=== PATIENT | female | born 1955 | race Caucasian/White ===

== ENCOUNTER → 2016-12-07 | Outpatient (CLI) | payer BC ==
[~2016-12-07] MED LIST: ANT25 PO; ASPI325T45 PO; ATV/1 PO; FURO20TA PO; GLC/500 PO; LISI-461 PO; OMEG10007 PO; PRLSR20 PO
[2016-12-07 13:36] LABS: ESTIMATED AVERAGE GLUCOSE 252 mg/dl; HA1C FLAG Normal (Normal)
[2016-12-07 13:37] LABS: BLOOD UREA NITROGEN 15 mg/dl (7-18); BUN/CREATININE RATIO 18.4 (10-20); CALCIUM 8.3 mg/dl (8.5-10.1); CARBON DIOXIDE 25 mmol/L (21-32); CHLORIDE 104 mmol/L (98-107); CHOLESTEROL 166 mg/dl (0-200); CREATININE 0.83 mg/dl (0.60-1.20); GLUCOSE 241 mg/dl (70-99); POTASSIUM 4.6 mmol/L (3.5-5.1); SODIUM 139 mmol/L (136-145); TRIGLYCERIDES 227 mg/dl (0-150); VERY LOW DENSITY LIPOPROT CALC 45 mg/dl
[2016-12-07 13:38] LABS: CHOLESTEROL/HDL RATIO 6.1; HDL CHOLESTEROL 27 mg/dl; LDL CHOLESTEROL CALCULATED 94 mg/dl
== END ==
LOC: C.LABPVFM 09:02
PROVIDERS: ATTEND Nurse Practitioner
DX: E11.9 Type 2 diabetes mellitus without complications (principal); D47.3 Essential (hemorrhagic) thrombocythemia; I10 Essential (primary) hypertension; E55.9 Vitamin D deficiency, unspecified

== ENCOUNTER → 2017-03-19 | Outpatient (CLI) | payer BC ==
[2017-03-19 13:27] LABS: CALCIUM 8.6 mg/dl (8.5-10.1)
[2017-03-19 13:30] LABS: BLOOD UREA NITROGEN 11 mg/dl (7-18); BUN/CREATININE RATIO 10.7 (10-20); CARBON DIOXIDE 27 mmol/L (21-32); CHLORIDE 104 mmol/L (98-107); GLUCOSE 226 mg/dl (70-99); POTASSIUM 4.8 mmol/L (3.5-5.1); SODIUM 137 mmol/L (136-145)
== END | disposition home or self-care (01) ==
LOC: C.LABPVFM 09:03
PROVIDERS: ATTEND Nurse Practitioner
DX: E11.9 Type 2 diabetes mellitus without complications (principal)

== ENCOUNTER → 2017-05-14 | Outpatient (CLI) | payer BC | END | disposition home or self-care (01) | LOC: C.LABPVFM 07:51 | PROVIDERS: ATTEND Neuromusculoskeletal Medicine & OMM | DX: R60.0 Localized edema (principal) ==

== ENCOUNTER → 2017-06-21 | Outpatient (CLI) | payer BC ==
[2017-06-21 13:43] LABS: BLOOD UREA NITROGEN 12 mg/dl (7-18); BUN/CREATININE RATIO 15.8 (10-20); CALCIUM 8.3 mg/dl (8.5-10.1); CARBON DIOXIDE 28 mmol/L (21-32); CHLORIDE 104 mmol/L (98-107); CREATININE 0.78 mg/dl (0.60-1.20); GLUCOSE 205 mg/dl (70-99); POTASSIUM 4.4 mmol/L (3.5-5.1); SODIUM 137 mmol/L (136-145)
[2017-06-21 13:48] LABS: CHOLESTEROL 156 mg/dl (0-200); CHOLESTEROL/HDL RATIO 6.2; HDL CHOLESTEROL 25 mg/dl; LDL CHOLESTEROL CALCULATED 99 mg/dl; TRIGLYCERIDES 159 mg/dl (0-150); VERY LOW DENSITY LIPOPROT CALC 32 mg/dl
[2017-06-21 13:53] LABS: ESTIMATED AVERAGE GLUCOSE 237 mg/dl; HA1C FLAG Normal (Normal)
== END | disposition home or self-care (01) ==
LOC: C.LABPVFM 08:46
PROVIDERS: ATTEND Nurse Practitioner
DX: E11.9 Type 2 diabetes mellitus without complications (principal); I10 Essential (primary) hypertension; R60.0 Localized edema; Z13.220 Encounter for screening for lipoid disorders

== ENCOUNTER → 2017-07-07 | Outpatient (CLI) | payer BC ==
--- NOTE | 2017-07-08 07:41 | MAMMOGRAPHY REPORT ---
BILATERAL DIGITAL SCREENING MAMMOGRAM TOMOSYNTHESIS WITH CAD: 07/07/2017 CLINICAL HISTORY: Routine screening. TECHNIQUE: Breast tomosynthesis in addition to standard 2D mammography was performed. Current study was also evaluated with a Computer Aided Detection (CAD) system. COMPARISON: Comparison is made to exams dated: 07/04/2016 mammogram, 06/27/2015 mammogram, 06/30/2013 m ammogram, 06/25/2012 mammogram, 06/24/2011 mammogram, and 06/21/2010 mammogram - [facility] enter. BREAST COMPOSITION: There are scattered areas of fibroglandular density in both breasts. FINDINGS: There are benign scattered calcifications in both breasts. No suspicious mass, architectu ral distortion or cluster of suspicious microcalcifications is seen. IMPRESSION: ACR BI-RADS CATEGORY 2: BENIGN There is no mammographic evidence of malignancy. A 1 year screening mammogram is recommended. The pa tient will receive written notification of the results. Approximately 10% of breast cancers are not detected with mammography. A negative mammographic report should not delay biopsy if a clinically suggestive mass is present. Danielle London M.D. ay/:07/07/2017 16:04:11 [employer] Foreman: Marlee CULP(R)(M), [facility] letter sent: Normal 1/2 BI-RADS Code: ACR BI-RADS Category 2: Benign
== END | disposition home or self-care (01) ==
LOC: C.MAMM 15:22
PROVIDERS: ATTEND Nurse Practitioner
DX: Z12.31 Encounter for screening mammogram for malignant neoplasm of breast (principal)

== ENCOUNTER 2017-10-16 15:19 | Emergency (ER) | payer OTHER, BC ==
[~2017-10-16] VITALS: Ht 170.2 cm; Wt 120.0 kg
[2017-10-16 15:22] VITALS: TEMP 36.3; Ht 170.2 cm; Wt 120.0 kg
[2017-10-16] MEDS ORDERED: GLIM1TAB2 PO (19:06)
[2017-10-16] MEDS ORDERED: INSDGIPEN SC (19:06)
[2017-10-16] MEDS ORDERED: RIZA10TA18 PO (19:06)
[2017-10-16] MEDS ORDERED: CLON1TAB3 PO (19:06)
[2017-10-16] MEDS ORDERED: SITA50TA3 PO (19:06)
[2017-10-16] MEDS ORDERED: GLUC-221 (19:06)
--- NOTE | 2017-10-16 20:07 | DIAGNOSTIC IMAGING REPORT ---
ULTRASOUND BILATERAL LOWER EXTREMITY VENOUS CLINICAL HISTORY: Fall. Leg pain. COMPARISON STUDY: No priors. TECHNIQUE: Real-time, grayscale, and color Doppler sonography of the deep veins of the right and left lower extremity was performed from the inguinal crease to the calf. Compression and augmentation were utilized. FINDINGS: There is no sonographic evidence of deep venous thrombosis identified in the right or left lower extremity. The common femoral, superficial femoral, and popliteal veins are patent and normally compressible bilaterally. The greater saphenous vein and the profunda femoris vein at the junction with the common femoral vein are clear in both legs. The visualized calf veins are patent bilaterally. IMPRESSION: There is no sonographic evidence of deep venous thrombosis identified in the right or left lower extremity. Electronically signed by: Milton Betts M.D. 10/16/2017 8:06 PM Dictated Date/Time: 10/16/2017 7:59 PM
--- NOTE | 2017-10-16 20:48 | EMERGENCY ROOM VISIT NOTE ---
History Report prepared by Elito: Penny Bartholomew Under the Supervision of: Dr. Irvin Donohue D.O. First contact with patient: 18:37 Chief Complaint: SWELLING TO EXTREMITY Stated Complaint: SENT FROM [place], DVT, FALL ON ICE History of Present Illness The patient is a 62 year old female who presents to the Emergency Room with complaints of worsening swelling to her right lower extremity starting yesterday. The patient states that yesterday she slipped on ice and fell down the stairs at work. She reports that she went to [employer] today who told her she had a broken toe and she should come to the ED to be checked for a blood clot. She notes that she gave her Tramadol and an antibiotic prescription before leaving. The patient complains of pain in her calves and redness on her legs below the abrasions on her legs. The patient notes a history of Diabetes. She notes that she takes Fluorescamine. Source of History: patient Onset: yesterday Position: leg (right) Quality: other (swelling) Timing: worsening Note: The patient complains of pain in her calves and redness on her legs below the abrasions from the fall. Review of Systems See HPI for pertinent positives & negatives. A total of 10 systems reviewed and were otherwise negative. Family History No pertinent family history Social History Smoking Status: Never Smoker Alcohol Use: none Drug Use: none Marital Status: Housing Status: lives with family Occupation Status: employed Current/Historical Medications Scheduled Aspirin (Aspirin), 325 MG PO DAILY Fish Oil ([place]-3), 1 CAP PO DAILY Furosemide (Lasix), 20 MG PO DAILY Glimepiride (Glimepiride), 1 TAB PO DAILY Insulin Glargine (Lantus Solostar), 25 UNITS SC PM Lisinopril (Zestril), 10 MG PO DAILY Lorazepam (Ativan), 0.5-1 MG PO HS Metformin Hcl (Glucophage), 1,000 MG PO QAM Metformin Hcl (Glucophage), 500 MG PO QPM Omeprazole (Prilosec), 20 MG PO DAILY Sitagliptin (Januvia), 50 MG PO DAILY Scheduled PRN Meclizine HCl (Meclizine HCl), 25 MG PO Q8H PRN for Dizziness or Vertigo Miscellaneous Medications Clonazepam (Klonopin), 1 MG PO Glucostix Blood Test Strips (OneMusementuch Ultra Blue) Rizatriptan Benzoate (Maxalt), 10 MG PO Allergies Coded Allergies: Penicillins (Verified Allergy, Intermediate, 10/16/17) Chocolate (Unverified Adverse Reaction, Severe, migraines, 10/16/17) Physical Exam Vital Signs Date Time Temp Pulse Resp B/P (MAP) Pulse Ox O2 Delivery O2 Flow Rate FiO2 10/16/17 21:05 81 16 168/86 97 Room Air 10/16/17 19:06 77 18 154/74 95 Room Air 10/16/17 15:22 36.3 77 16 158/85 95 Room Air Physical Exam CONSTITUTIONAL/VITAL SIGNS: Reviewed / noted above. GENERAL: Non-toxic in appearance. INTEGUMENTARY: Warm, dry, and [place]. HEAD: Normocephalic. EYES: without scleral icterus or trauma. ENT/OROPHARYNX: clear and moist. LYMPHADENOPATHY/NECK: Is supple without lymphadenopathy or meningismus. RESPIRATORY: Lungs clear and equal. CARDIOVASCULAR: Regular rate and rhythm. GI/ABDOMEN: Soft and nontender. No organomegaly or pulsatile mass. No rebound or guarding. Normal bowel sounds. EXTREMITIES: Warm and well perfused. Bilateral lower extremity edema appears chronic. Redness to the bilateral lower anterior legs. Right greater than left. Small healing abrasions noted to the center of the reddened areas. BACK: No CVA tenderness. NEUROLOGICAL: Intact without focal deficits. PSYCHIATRIC: normal affect. MUSCULOSKELETAL: Normally developed with good muscle tone. Medical Decision & Procedures ER Provider Diagnostic Interpretation: Radiology results as stated below per my review and radiologist interpretation: ULTRASOUND BILATERAL LOWER EXTREMITY VENOUS CLINICAL HISTORY: Fall. Leg pain. COMPARISON STUDY: No priors. TECHNIQUE: Real-time, grayscale, and color Doppler sonography of the deep veins of the right and left lower extremity was performed from the inguinal crease to the calf. Compression and augmentation were utilized. FINDINGS: There is no sonographic evidence of deep venous thrombosis identified in the right or left lower extremity. The common femoral, superficial femoral, and popliteal veins are patent and normally compressible bilaterally. The greater saphenous vein and the profunda femoris vein at the junction with the common femoral vein are clear in both legs. The visualized calf veins are patent bilaterally. IMPRESSION: There is no sonographic evidence of deep venous thrombosis identified in the right or left lower extremity. Electronically signed by: Milton Betts M.D. 10/16/2017 8:06 PM Dictated Date/Time: 10/16/2017 7:59 PM Medications Administered Medications (Trade) Dose Ordered Sig/Pamela Route Start Time Stop Time Status Last Admin Dose Admin Doxycycline Hyclate (Vibramycin Cap) 100 mg ONE ONCE PO 10/16/17 21:00 10/16/17 21:01 DC 10/16/17 21:20 100 MG Tramadol HCl (Ultram Tab) 100 mg NOW STAT PO 10/16/17 20:52 10/16/17 20:53 DC 10/16/17 21:20 100 MG ED Course 1837: Previous medical records were reviewed. The patient was evaluated in room C8. A complete history and physical examination was performed. 2049: On reevaluation, the patient is resting comfortably. I discussed the results and findings with the patient. She verbalized agreement of the treatment plan. The patient was discharged home. 2051: Ordered Tramadol HCl 100 mg PO. 2099: Ordered Doxycycline Hyclate 100 mg PO. Medical Decision Etiologies such as cellulitis, abscess, MRSA infection, DVT, necrotizing fasciitis, dermatitis, drug eruption, as well as others were entertained.. The patient presents as noted above with a concern for possible DVT. She was sent from [employer] for this. The patient was given antibiotics and pain medication for lower show me cellulitis. Her exam is consistent with a cellulitis. Ultrasounds did not show DVT. She was told the results and discharged. Medication Reconcilliation Current Medication List: was personally reviewed by me Blood Pressure Screening Patient's blood pressure: Elevated blood pressure Blood pressure disposition: Elevated BP felt to be situational Impression Primary Impression: Cellulitis of leg Scribe Attestation The scribe's documentation has been prepared under my direction and personally reviewed by me in its entirety. I confirm that the note above accurately reflects all work, treatment, procedures, and medical decision making performed by me. Departure Information Dispostion Home / Self-Care Referrals Genevieve Chew C.R.N.P (PCP) Forms HOME CARE DOCUMENTATION FORM, IMPORTANT VISIT INFORMATION, WORK / SCHOOL INSTRUCTIONS Patient Instructions My [facility] Additional Instructions Take the antibiotic you were prescribed. Ultrasound did not show DVT.
[2017-10-16] MEDS ORDERED: TRAMADOL HCL 50 MG TAB PO STA (20:52)
[2017-10-16] MEDS ORDERED: DOXYCYCLINE HYCLATE 100 MG CAP PO ONE (21:00)
[2017-10-16 21:05] VITALS: BP 168/86; PULSE 81; O2SAT 97
== END 2017-10-16 21:23 | disposition home or self-care (01) ==
LOC: C.EDB 15:21 → C.EDC 21:23
DX: L03.115 Cellulitis of right lower limb (principal); E11.9 Type 2 diabetes mellitus without complications; Z79.82 Long term (current) use of aspirin; Z79.4 Long term (current) use of insulin; Z79.84 Long term (current) use of oral hypoglycemic drugs; Z79.899 Other long term (current) drug therapy

== ENCOUNTER → 2017-10-31 | Outpatient (CLI) | payer OTHER, BC ==
[~2017-10-31] MED LIST changes: +CLON1TAB3 PO; +GLIM1TAB2 PO; +GLUC-221; +INSDGIPEN SC; +RIZA10TA18 PO; +SITA50TA3 PO
== END | disposition home or self-care (01) ==
LOC: C.CPL 10:32
PROVIDERS: ATTEND Orthopaedic Surgery Sports Medicine
DX: Z01.810 Encounter for preprocedural cardiovascular examination (principal); S92.412A Displaced fracture of proximal phalanx of left great toe, initial encounter for closed fracture; X58.XXXA Exposure to other specified factors, initial encounter

== ENCOUNTER → 2017-11-26 | Outpatient (CLI) | payer BC ==
[2017-11-26 17:43] LABS: ALBUMIN 3.2 gm/dl (3.4-5.0); ALT/SGPT 20 U/L (12-78); AST/SGOT 11 U/L (15-37); BLOOD UREA NITROGEN 11 mg/dl (7-18); CALCIUM 8.6 mg/dl (8.5-10.1); CARBON DIOXIDE 27 mmol/L (21-32); CREATININE 0.83 mg/dl (0.60-1.20); GLUCOSE 114 mg/dl (70-99); SODIUM 134 mmol/L (136-145)
[2017-11-26 17:46] LABS: ALKALINE PHOSPHATASE 130 U/L (45-117); TOTAL PROTEIN 7.2 gm/dl (6.4-8.2)
[2017-11-27 07:23] LABS: HEMOGLOBIN A1C 8.3 % (4.5-5.6)
== END | disposition home or self-care (01) ==
LOC: C.LAB1850 16:17
PROVIDERS: ATTEND Family Medicine
DX: E11.65 Type 2 diabetes mellitus with hyperglycemia (principal); E55.9 Vitamin D deficiency, unspecified

== ENCOUNTER → 2018-04-23 | Outpatient (CLI) | payer BC ==
[~2018-04-23] MED LIST changes: +ASPECOTC PO; -ASPI325T45 PO; -CLON1TAB3 PO; +CLON1TAB5 PO
[2018-04-23 18:12] LABS: ALBUMIN 3.4 gm/dl (3.4-5.0); ALKALINE PHOSPHATASE 131 U/L (45-117); ALT/SGPT 18 U/L (12-78); AST/SGOT 10 U/L (15-37); BLOOD UREA NITROGEN 16 mg/dl (7-18); CALCIUM 8.5 mg/dl (8.5-10.1); CARBON DIOXIDE 26 mmol/L (21-32); CHOLESTEROL 158 mg/dl (0-200); CREATININE 1.06 mg/dl (0.60-1.20); GLUCOSE 131 mg/dl (70-99); LDL CHOLESTEROL CALCULATED 86 mg/dl; POTASSIUM 3.9 mmol/L (3.5-5.1); SODIUM 138 mmol/L (136-145); TOTAL PROTEIN 7.5 gm/dl (6.4-8.2)
[2018-04-24 06:18] LABS: HEMOGLOBIN A1C 6.8 % (4.5-5.6)
== END | disposition home or self-care (01) ==
LOC: C.LABPVFM 16:03
PROVIDERS: ATTEND Nurse Practitioner
DX: E11.9 Type 2 diabetes mellitus without complications (principal); R74.8 Abnormal levels of other serum enzymes

== ENCOUNTER → 2018-04-29 | Outpatient (CLI) | payer BC ==
--- NOTE | 2018-04-29 09:45 | DIAGNOSTIC IMAGING REPORT ---
THYROID ULTRASOUND HISTORY: E04.1 Solitary thyroid liunglV59.89 Choking sensationlast US 201 COMPARISON: Thyroid ultrasound 12/22/2013. FINDINGS: Right lobe: 6.3 x 3.7 x 3.2 cm. Primarily solid heterogeneous lower pole nodule measuring 3.7 x 3.4 x 2.7 cm. This previous measured 2.4 x 2.4 cm. There is a similar-appearing upper pole nodule measuring 1.5 x 1.4 x 1.1 cm. This previous measured 1.2 x 1.2 x 0.8 cm. Left lobe: 6.0 x 3.8 x 2.7 cm. Dominant solid nodule within the lower pole measures approximately 4.1 x 3.3 cm. This is similar to the prior study. Isthmus: Hypoechoic solid nodule within the isthmus measures 6 mm. This previously measured 5 mm. IMPRESSION: 1. Increase in size in the dominant right thyroid nodules as described above. 2. Dominant left thyroid nodule is not significantly changed. 3. Slight increase in size in the 6 mm isthmic nodule. Electronically signed by: Sedrick Mehta M.D. 04/29/2018 9:44 AM Dictated Date/Time: 04/29/2018 9:36 AM
== END | disposition home or self-care (01) ==
LOC: C.ULTR 08:47
PROVIDERS: ATTEND Nurse Practitioner
DX: E04.1 Nontoxic single thyroid nodule (principal); R09.89 Other specified symptoms and signs involving the circulatory and respiratory systems